=== PATIENT | female | born 1955 | race Caucasian/White ===

== ENCOUNTER 2018-09-30 08:15 | Inpatient (IN) | payer OTHER ==
[~2018-09-30] VITALS: Ht 157.5 cm; Wt 45.4 kg
[2018-09-30] MEDS ORDERED: AMLODIPINE BESY10 MG PO (09:49)
[2018-09-30] MEDS ORDERED: SERTRALINE HCL100 MG PO (09:50)
[2018-09-30] MEDS ORDERED: RESTORIL30 MG PO (09:50)
[2018-09-30] MEDS ORDERED: LAMICTAL100 MG PO (09:51)
[2018-09-30] MEDS ORDERED: CLONAZEPAM1 M1 PO (09:51)
[2018-10-11] MEDS ORDERED: HYOSCYAMINE0.125 M1 SL (15:10)
[2018-10-11] MEDS ORDERED: NEURONTIN300 MG PO (15:10)
[2018-10-11] MEDS ORDERED: KETOROLAC TROME10 MG PO (15:11)
== END 2018-10-11 17:43 | disposition home or self-care (01) | DRG 330 ==
LOC: ADM 08:15 → EDSTATUS 09:00 → ADM 09:00 → SURH 10-05 07:00 → O/R 10-05 07:52 → SURH 10-05 07:52
PROVIDERS: ADMIT Surgery
PROC: 0DJD8ZZ Inspection of Lower Intestinal Tract, Via Natural or Artificial Opening Endoscopic (ICD-10-PCS; 2018-10-05)
PROC: 0DQP4ZZ Repair Rectum, Percutaneous Endoscopic Approach (ICD-10-PCS; principal; 2018-10-05 07:00)
DX: K62.3 Rectal prolapse (principal); F31.89 Other bipolar disorder; R15.9 Full incontinence of feces; K59.02 Outlet dysfunction constipation; N39.498 Other specified urinary incontinence; I10 Essential (primary) hypertension; Z88.0 Allergy status to penicillin